=== PATIENT | female | born 1950 | race Caucasian/White ===

== ENCOUNTER 2016-08-24 09:13 | Observation (INO) | payer OTHER, BC ==
[2016-08-24] MEDS ORDERED: IBUPROFEN 400 MG TABLET (FP) PO ONE (09:30)
[2016-08-24] MEDS ORDERED: diazePAM 5 MG TABLET PO ONE (09:30)
[2016-08-24 09:31] VITALS: BMI 23.3
--- NOTE | 2016-08-24 09:34 | PDOC ---
History of Present Illness - General Chief Complaint: Injury Stated Complaint: FALL Time Seen by Provider: 08/24/16 09:26 History Source: Patient - History of Present Illness Occurred: reports: this morning Pain Location: reports: back Method of Injury: Yes: fall Past History - Past Medical History Allergies/Adverse Reactions: Allergies Allergy/AdvReac Type Severity Reaction Status Date / Time ANTI-SPASMODICS Allergy Unknown Uncoded 08/24/16 09:20 Home Medications: Ambulatory Orders Levothyroxine [Synthroid -] 125 mcg PO DAILY 08/24/16 Thyroid Disease: Yes (HYPO.) - Psycho/Social/Smoking Cessation Hx Anxiety: No Suicidal Ideation: No Smoking History: Never smoked Hx Alcohol Use: No Drug/Substance Use Hx: No Substance Use Type: None Review of Systems - Review of Systems Musculoskeletal: Yes: Back Pain. No: Neck Pain Neurological: No: Headache, Numbness, Tingling, Weakness, Dizziness *Physical Exam - Vital Signs Last Vital Signs Temp Pulse Resp BP Pulse Ox 97.1 F L 51 L 18 113/89 100 08/24/16 09:17 08/24/16 09:17 08/24/16 09:17 08/24/16 09:17 08/24/16 09:17 - Physical Exam General Appearance: Yes: Appropriately Dressed, Mild Distress HEENT: positive: Normal Voice Neck: positive: Supple. negative: Tender, Decreased range of motion Respiratory/Chest: negative: Respiratory Distress Gastrointestinal/Abdominal: positive: Soft. negative: Tender Musculoskeletal: negative: CVA Tenderness, Vertebral Tenderness Extremity: positive: Normal Inspection Integumentary: positive: Dry, Warm Neurologic: positive: Fully Oriented, Alert, Normal Mood/Affect ED Treatment Course - RADIOLOGY Radiology Studies Ordered: Category Date Time Status SPINE-LUMBAR SACRAL [RAD] Stat Radiology 08/24/16 09:30 Ordered Medical Decision Making - Medical Decision Making 08/24/16 09:31 66-year-old female history of [place]'s thyroiditis, here with lower back pain status post fall. 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 Unable to describe pain but states it is severe. Does not radiate and no lower extremity weakness, saddle anesthesia or bowel or bladder incontinence. Has not tried to take anything for pain. Has been able to stand since fall, but has not attempted to walk. No history of chronic back pain. See exam Lower back pain s/p mec fall M/l sprain R/o fx -pain control in ED 08/24/16 09:33 08/24/16 10:08 Acute osteoporotic compression fx of L2 w/ disruption of anterior cortex on XR as per radiology. Pain meds in progress 08/24/16 10:22 08/24/16 13:01 Despite multipel attempts of pain control, pt unable to ambulate in ED 2/2 pain. No LE weakness, b/b incontinence or saddle anesthesia. Will c/w pt's orthopedic Dr Steve and PMD to admit for pain control 08/24/16 13:15 Case d/w Dr Kuhn, covering MD for Dr Peters, agrees w/ admission to OBs for pain control. Pending ortho c/s for recs 08/24/16 13:23 Case discussed with MILE Khan of orthopedics, states Dr Steve does not specialize in ortho spine but that Dr Hunter does and will inform MD. Consult also placed 08/24/16 13:25 *DC/Admit/Observation/Transfer Diagnosis at time of Disposition: Compression fracture of lumbar vertebra Qualifiers: Encounter type: initial encounter Fracture type: closed Qualified Code(s): S32.000A - Wedge compression fracture of unspecified lumbar vertebra, initial encounter for closed fracture - Discharge Dispostion Condition at time of disposition: Fair Admit: Yes
[2016-08-24] MEDS ORDERED: traMADol HCL 50 MG TABLET PO ONE (10:14)
[2016-08-24] MEDS ORDERED: ONDANSETRON 4 MG TABLET PO ONE (10:16)
[2016-08-24] MEDS ORDERED: ONDANSETRON *ODT* 4 MG TABLET ONE (10:17)
[2016-08-24] MEDS ORDERED: HYDROmorphone HCL CARPU-JECT 2 MG/1 ML DISP.SYRIN IVPB ONE ×2 (11:09)
[2016-08-24] MEDS ORDERED: morphine CARPU-JECT 4 MG/1 ML DISP.SYRIN IM ONE (11:51)
[2016-08-24] MEDS ORDERED: morphine CARPU-JECT 2 MG/1 ML DISP.SYRIN ONE (11:56)
[2016-08-24 14:01] LABS: BASOPHIL 0.3 % (0-2.0); EOSINOPHIL 0.2 % (0-4.5); MCH 29.5 pg (25.7-33.7); MCHC 33.6 g/dl (32.0-36.0); MEAN CELL VOLUME 87.9 fl (80-96); MEAN PLT VOLUME 8.6 fl (7.5-11.1); NEUTROPHILS 89.3 % (42.8-82.8); PLATELET COUNT 262 K/MM3 (134-434); RDW 12.4 % (11.6-15.6); WHITE BLOOD COUNT 13.1 K/mm3 (4.0-10.0)
[2016-08-24 14:27] LABS: ALBUMIN 3.4 g/dl (3.4-5.0); ANION GAP 6 (8-16); BILIRUBIN,TOTAL 0.2 mg/dL (0.2-1.0); CALCIUM 8.9 mg/dL (8.5-10.1); CO2 27 mmol/L (21-32); CREATININE 0.6 mg/dL (0.55-1.02); GLUCOSE,RANDOM 104 mg/dL (74-106); SGPT/ALT 19 U/L (12-78); TOT PROT 6.9 g/dl (6.4-8.2)
[2016-08-24 14:28] LABS: ALK PHOS 77 U/L (45-117)
[2016-08-24 14:41] LABS: SGOT/AST 22 U/L (15-37)
[2016-08-24] MEDS ORDERED: morphine CARPU-JECT 2 MG/1 ML DISP.SYRIN IVPUSH PRN ×2 (16:49→17:11)
--- NOTE | 2016-08-24 17:12 | HP ---
Admitting History and Physical - Primary Care Physician PCP: Kit Peters - Admission Chief Complaint: back pain History of Present Illness: 66-year-old female history of [place]'s thyroiditis, here with lower back pain status post fall. 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 Unable to describe pain but states it is severe. Does not radiate and no lower extremity weakness, saddle anesthesia or bowel or bladder incontinence. Has not tried to take anything for pain. Has been able to stand since fall, but has not attempted to walk. No history of chronic back pain. x ray done in er showed acute compression fracture pt unable to walk due to pain - despite pain meds pt admitted for obs- ortho consult requested. History Source: Patient Limitations to Obtaining History: No Limitations - Past Medical History ...: No Endocrine: Yes: Hypothyroidism - Smoking History Smoking history: Never smoked Have you smoked in the past 12 months: No - Alcohol/Substance Use Hx Alcohol Use: No Home Medications - Allergies Allergies/Adverse Reactions: Allergies Allergy/AdvReac Type Severity Reaction Status Date / Time No Known Drug Allergies Allergy Verified 08/24/16 16:40 ANTI-SPASMODICS Allergy Unknown Uncoded 08/24/16 09:20 - Home Medications Home Medications: Ambulatory Orders Levothyroxine [Synthroid -] 125 mcg PO DAILY 08/24/16 Family Disease History - Family Disease History Family History: Unremarkable Review of Systems - Review of Systems Constitutional: reports: No Symptoms Eyes: reports: No Symptoms HENT: reports: No Symptoms Neck: reports: No Symptoms Cardiovascular: reports: No Symptoms Respiratory: reports: No Symptoms Gastrointestinal: reports: No Symptoms Genitourinary: reports: No Symptoms Musculoskeletal: reports: Back Pain Neurological: reports: No Symptoms Physical Examination Vital Signs: Vital Signs Temperature 97.6 F 08/24/16 15:58 Pulse Rate 54 L 08/24/16 15:58 Respiratory Rate 18 08/24/16 15:58 Blood Pressure 108/56 08/24/16 15:58 O2 Sat by Pulse Oximetry (%) 99 08/24/16 14:32 Constitutional: Yes: No Distress, Calm Eyes: Yes: Conjunctiva Clear HENT: Yes: WNL Neck: Yes: Supple Cardiovascular: Yes: Regular Rate and Rhythm Respiratory: Yes: CTA Bilaterally Gastrointestinal: Yes: Normal Bowel Sounds, Soft Musculoskeletal: Yes: Other (tenderness + lower back) Edema: No Neurological: Yes: Alert Labs: CBC, BMP 08/24/16 13:45 08/24/16 13:45 Imaging - Results X-ray: Report Reviewed Problem List - Problems (1) Compression fracture of lumbar vertebra Code(s): S32.000A - WEDGE COMPRESSION FRACTURE OF UNSP LUMBAR VERTEBRA, INIT Qualifiers: Encounter type: initial encounter Fracture type: closed Qualified Code(s): S32.000A - Wedge compression fracture of unspecified lumbar vertebra, initial encounter for closed fracture Assessment/Plan Pain control physical therapy ortho consult pending discussed with pt / daughter will follow
[2016-08-24] MEDS ORDERED: diazePAM 5 MG TABLET PO PRN (17:30)
[2016-08-24] MEDS ORDERED: ONDANSETRON 4 MG/2 ML VIAL IVPB PRN (17:32)
[2016-08-24] MEDS: ENOXAPARIN NA (PORCINE) 40 MG/0.4 ML DISP.SYRIN SQ SCH (18:35)
[2016-08-24] MEDS: traMADol HCL 50 MG TABLET PO PRN (22:56)
[2016-08-25] MEDS: LEVOTHYROXINE NA 125 MCG TABLET (FP) PO SCH (06:38)
--- NOTE | 2016-08-25 09:29 | CONSULT ---
Consult - History of Present Illness Chief Complaint: Back pain x1 day History of Present Illness: 66y/o female c/o low back pain x1 day after she fell onto her back. She immediately had pain and was transported to the ER and found to have a compression fracture of the spine. She denies any numbness or tingling in her extremities. She denies any loss of bowel or bladder function. She has no other complaints. The pain is worse with standing and better with rest. No other associated, aggravating or relieving factors. - History Source History Provided By: Patient, Medical Record Limitations to Obtaining History: No Limitations - Past Medical History ...: No Endocrine: Yes: Hypothyroidism - Alcohol/Substance Use Hx Alcohol Use: No - Smoking History Smoking history: Never smoked Have you smoked in the past 12 months: No Home Medications - Allergies Allergies/Adverse Reactions: Allergies Allergy/AdvReac Type Severity Reaction Status Date / Time No Known Drug Allergies Allergy Verified 08/24/16 16:40 ANTI-SPASMODICS Allergy Unknown Uncoded 08/24/16 09:20 - Home Medications Home Medications: Ambulatory Orders Levothyroxine [Synthroid -] 125 mcg PO DAILY 08/24/16 Review of Systems - Review of Systems Constitutional: reports: No Symptoms Eyes: reports: No Symptoms HENT: reports: No Symptoms Neck: reports: No Symptoms Cardiovascular: reports: No Symptoms Respiratory: reports: No Symptoms Gastrointestinal: reports: No Symptoms Genitourinary: reports: No Symptoms Breasts: reports: No Symptoms Reported Musculoskeletal: reports: No Symptoms Integumentary: reports: No Symptoms Neurological: reports: No Symptoms Endocrine: reports: No Symptoms Hematology/Lymphatic: reports: No Symptoms Psychiatric: reports: No Symptoms Physical Exam Vital Signs: Vital Signs Temperature 98.6 F 08/25/16 07:06 Pulse Rate 79 08/25/16 07:06 Respiratory Rate 16 08/25/16 07:06 Blood Pressure 100/57 08/25/16 07:06 O2 Sat by Pulse Oximetry (%) 100 08/25/16 01:10 Constitutional: Yes: Well Nourished, No Distress HENT: Yes: Atraumatic, Normocephalic Extremities: Yes: Other (Back: No open wounds. No erythema, edema or echymosis. Mild diffuse TTP in L2 region. BLE: No weakness, no numbness, No tenderness, Smooth ROM of hips, knees, ankles, feet. NVID.) Labs: CBC, BMP 08/24/16 13:45 08/24/16 13:45 Imaging - Results X-ray: Report Reviewed, Image Reviewed (L2 compression fracture) Assessment/Plan #1 L2 compression fracture s/p fall -LSO brace ordered -PT OOB with LSO brace -Heat PRN -Pain control -f/u with Dr. Hunter in office in 1-2 weeks. -D/C when pain is well controlled
[2016-08-25] MEDS: diazePAM 5 MG TABLET PO PRN ×2 (10:14→21:50)
[2016-08-25] MEDS: traMADol HCL 50 MG TABLET PO PRN ×2 (10:14→21:49)
[2016-08-25] MEDS: ENOXAPARIN NA (PORCINE) 40 MG/0.4 ML DISP.SYRIN SQ SCH ×2 (10:15→10:21)
--- NOTE | 2016-08-25 10:42 | PN ---
Progress Note, Physician Chief Complaint: has back pain when moved - Current Medication List Current Medications: Active Medications Diazepam (Valium -) 5 mg PO BID PRN Last Admin: 08/25/16 10:14 Dose: 5 mg Enoxaparin Sodium (Lovenox -) 40 mg SQ DAILY [facility] Last Admin: 08/25/16 10:21 Dose: Not Given Levothyroxine Sodium (Synthroid -) 125 mcg PO DAILY@0700 [facility] Last Admin: 08/25/16 06:38 Dose: 125 mcg Morphine Sulfate (Morphine Injection -) 1 mg IVPUSH Q4H PRN PRN Reason: PAIN Ondansetron HCl (Zofran Injection) 4 mg IVPB Q8H PRN PRN Reason: NAUSEA Tramadol HCl (Ultram -) 50 mg PO Q6H PRN PRN Reason: PAIN Last Admin: 08/25/16 10:14 Dose: 50 mg - Objective Vital Signs: Vital Signs Temperature 98.6 F 08/25/16 07:06 Pulse Rate 79 08/25/16 07:06 Respiratory Rate 16 08/25/16 07:06 Blood Pressure 100/57 08/25/16 07:06 O2 Sat by Pulse Oximetry (%) 100 08/25/16 01:10 Constitutional: Yes: No Distress Cardiovascular: Yes: Regular Rate and Rhythm Respiratory: Yes: CTA Bilaterally Gastrointestinal: Yes: Normal Bowel Sounds, Soft. No: Distention, Tenderness Edema: No Labs: CBC, BMP 08/24/16 13:45 08/24/16 13:45 Problem List - Problems (1) Compression fracture of lumbar vertebra Code(s): S32.000A - WEDGE COMPRESSION FRACTURE OF UNSP LUMBAR VERTEBRA, INIT Qualifiers: Encounter type: initial encounter Fracture type: closed Qualified Code(s): S32.000A - Wedge compression fracture of unspecified lumbar vertebra, initial encounter for closed fracture (2) Hypothyroidism Code(s): E03.9 - HYPOTHYROIDISM, UNSPECIFIED Assessment/Plan PLAN -- pain control --incentive spirometer -- DVT prophylaxis -- PT eval -- Ortho eval noted -- needs Lumbar brace
[2016-08-26] MEDS: LEVOTHYROXINE NA 125 MCG TABLET (FP) PO SCH (06:27)
[2016-08-26] MEDS: ACETAMINOPHEN 325 MG TABLET (FP) PO PRN (06:54)
[2016-08-26] MEDS: diazePAM 5 MG TABLET PO PRN ×2 (09:32→17:42)
[2016-08-26] MEDS: traMADol HCL 50 MG TABLET PO PRN ×2 (09:32→17:41)
[2016-08-26] MEDS: ENOXAPARIN NA (PORCINE) 40 MG/0.4 ML DISP.SYRIN SQ SCH (09:33)
--- NOTE | 2016-08-26 11:05 | PN ---
Progress Note, Physician Chief Complaint: has back pain no bm so far - Current Medication List Current Medications: Active Medications Acetaminophen (Tylenol -) 650 mg PO Q4H PRN PRN Reason: FEVER OR PAIN Last Admin: 08/26/16 06:54 Dose: 650 mg Diazepam (Valium -) 5 mg PO BID PRN Last Admin: 08/26/16 09:32 Dose: 5 mg Enoxaparin Sodium (Lovenox -) 40 mg SQ DAILY [facility] Last Admin: 08/26/16 09:33 Dose: Not Given Levothyroxine Sodium (Synthroid -) 125 mcg PO DAILY@0700 [facility] Last Admin: 08/26/16 06:27 Dose: 125 mcg Morphine Sulfate (Morphine Injection -) 1 mg IVPUSH Q4H PRN PRN Reason: PAIN Ondansetron HCl (Zofran Injection) 4 mg IVPB Q8H PRN PRN Reason: NAUSEA Tramadol HCl (Ultram -) 50 mg PO Q6H PRN PRN Reason: PAIN Last Admin: 08/26/16 09:32 Dose: 50 mg - Objective Vital Signs: Vital Signs Temperature 98.3 F 08/25/16 22:00 Pulse Rate 82 08/25/16 22:00 Respiratory Rate 18 08/26/16 00:21 Blood Pressure 105/61 08/25/16 22:00 O2 Sat by Pulse Oximetry (%) 99 08/26/16 00:21 Constitutional: Yes: No Distress Cardiovascular: Yes: Regular Rate and Rhythm Respiratory: Yes: CTA Bilaterally Gastrointestinal: Yes: Normal Bowel Sounds, Soft. No: Distention, Tenderness Edema: No Labs: CBC, BMP 08/24/16 13:45 08/24/16 13:45 Problem List - Problems (1) Compression fracture of lumbar vertebra Code(s): S32.000A - WEDGE COMPRESSION FRACTURE OF UNSP LUMBAR VERTEBRA, INIT Qualifiers: Encounter type: initial encounter Fracture type: closed Qualified Code(s): S32.000A - Wedge compression fracture of unspecified lumbar vertebra, initial encounter for closed fracture (2) Hypothyroidism Code(s): E03.9 - HYPOTHYROIDISM, UNSPECIFIED Assessment/Plan PLAN -- pain control --incentive spirometer -- DVT prophylaxis -- PT eval -- needs Lumbar brace -- will need VNS on discharge
[2016-08-26] MEDS: POLYETHYLENE GLYCOL 3350 119 GM BTL PO SCH (17:42)
[2016-08-27] MEDS: diazePAM 5 MG TABLET PO PRN (00:45)
[2016-08-27] MEDS: traMADol HCL 50 MG TABLET PO PRN ×2 (00:45→22:21)
[2016-08-27] MEDS: LEVOTHYROXINE NA 125 MCG TABLET (FP) PO SCH (06:15)
[2016-08-27] MEDS: ENOXAPARIN NA (PORCINE) 40 MG/0.4 ML DISP.SYRIN SQ SCH (10:29)
[2016-08-27] MEDS: POLYETHYLENE GLYCOL 3350 119 GM BTL PO SCH (10:42)
--- NOTE | 2016-08-27 12:28 | PN ---
Progress Note (short form) - Note Progress Note: pt seen/ examined/ chart reviewed. pt still complains of back pain difficulty walking passing urine ok pt says she cant go home as she still has lot of pain and says she lives alone and has 15 steps to home she would like to go for str daughter at bedside Vital Signs Temp 98.3 F 08/27/16 10:00 Pulse 73 08/27/16 10:00 Resp 20 08/27/16 10:00 BP 102/62 08/27/16 10:00 Pulse Ox 99 08/27/16 01:00 Intake & Output 08/26/16 08/27/16 08/27/16 23:59 11:59 23:59 Intake Total 890 Balance 890 Intake: Oral 890 Other: Voiding Method Toilet Toilet # Unmeasured Voids Void 1 2 Bowel Movement No No # Bowel Movements 0 Active Medications Acetaminophen (Tylenol -) 650 mg PO Q4H PRN PRN Reason: FEVER OR PAIN Last Admin: 08/26/16 06:54 Dose: 650 mg Diazepam (Valium -) 5 mg PO BID PRN Last Admin: 08/27/16 00:45 Dose: 5 mg Enoxaparin Sodium (Lovenox -) 40 mg SQ DAILY [facility] Last Admin: 08/27/16 10:29 Dose: Not Given Levothyroxine Sodium (Synthroid -) 125 mcg PO DAILY@0700 [facility] Last Admin: 08/27/16 06:15 Dose: 125 mcg Morphine Sulfate (Morphine Injection -) 1 mg IVPUSH Q4H PRN PRN Reason: PAIN Ondansetron HCl (Zofran Injection) 4 mg IVPB Q8H PRN PRN Reason: NAUSEA Polyethylene Glycol (Miralax (For Daily Use) -) 17 gm PO DAILY [facility] Last Admin: 08/27/16 10:42 Dose: 17 gm Tramadol HCl (Ultram -) 50 mg PO Q6H PRN PRN Reason: PAIN Last Admin: 08/27/16 00:45 Dose: 50 mg - Objective Constitutional: Yes: No Distress Cardiovascular: Yes: Regular Rate and Rhythm Respiratory: Yes: CTA Bilaterally Gastrointestinal: Yes: Normal Bowel Sounds, Soft. No: Distention, Tenderness Edema: No back-- rom limited Problem List - Problems (1) Compression fracture of lumbar vertebra Code(s): S32.000A - WEDGE COMPRESSION FRACTURE OF UNSP LUMBAR VERTEBRA, INIT Qualifiers: Encounter type: initial encounter Fracture type: closed Qualified Code(s): S32.000A - Wedge compression fracture of unspecified lumbar vertebra, initial encounter for closed fracture (2) Hypothyroidism Code(s): E03.9 - HYPOTHYROIDISM, UNSPECIFIED Assessment/Plan -- pain control -- physical therapy --incentive spirometer -- DVT prophylaxis -- -got Lumbar brace -- discussed with case sealer about pts request for str - will follow Problem List - Problems (1) Compression fracture of lumbar vertebra Code(s): S32.000A - WEDGE COMPRESSION FRACTURE OF UNSP LUMBAR VERTEBRA, INIT Qualifiers: Encounter type: initial encounter Fracture type: closed Qualified Code(s): S32.000A - Wedge compression fracture of unspecified lumbar vertebra, initial encounter for closed fracture
[2016-08-27] MEDS: CYCLOBENZAPRINE HCL 10 MG TABLET (FP) PO SCH ×2 (14:58→22:17)
[2016-08-27] MEDS: ACETAMINOPHEN 325 MG TABLET (FP) PO PRN (20:09)
[2016-08-28] MEDS: LEVOTHYROXINE NA 125 MCG TABLET (FP) PO SCH (06:04)
[2016-08-28] MEDS: traMADol HCL 50 MG TABLET PO PRN ×2 (06:09→17:04)
[2016-08-28 09:17] VITALS: BP 101/83; PULSE 83; TEMP 97.8
[2016-08-28] MEDS ORDERED: PT OWN MED DRAWER 7, Y5N ONE (10:56)
[2016-08-28] MEDS: CYCLOBENZAPRINE HCL 10 MG TABLET (FP) PO SCH (10:57)
[2016-08-28] MEDS: POLYETHYLENE GLYCOL 3350 119 GM BTL PO SCH (10:58)
[2016-08-28] MEDS: ENOXAPARIN NA (PORCINE) 40 MG/0.4 ML DISP.SYRIN SQ SCH (10:58)
--- NOTE | 2016-08-28 11:44 | DS ---
[id number] Rate 20 08/28/16 09:16 Blood Pressure 101/83 08/28/16 09:16 O2 Sat by Pulse Oximetry (%) 99 08/28/16 01:00 Constitutional: Yes: No Distress, Calm Cardiovascular: Yes: Regular Rate and Rhythm Respiratory: Yes: CTA Bilaterally Gastrointestinal: Yes: Normal Bowel Sounds, Soft. No: Distention, Tenderness Edema: No Labs: CBC, BMP 08/24/16 13:45 08/24/16 13:45 Discharge Summary Reason For Visit: COMPRESSION FX OF LUMBAR VERT Current Active Problems Compression fracture of lumbar vertebra (Acute) Hypothyroidism (Acute) Hospital Course: this is a 66-year-old woman who fell at work, was found to have acute compression fracture of the lumbar spine. She was seen by orthopedic surgeon and advised to have lumbar brace and physical therapy. patient received lumbar brace her insurance denied coverage for rehabilitation placement Patient will be discharged home with visiting nurse services and home physical therapy She is advised to follow with orthopedic surgeon She is also advised not to return to work until she is seen by her primary doctor as well as orthopedic surgeon who will give her clearance to return to work Condition: Fair - Instructions Diet, Activity, Other Instructions: patient will require VNS and physical therapy Referrals: Kit Peters MD [Primary Care Provider] - Disposition: HOME - Home Medications Comprehensive Discharge Medication List: Ambulatory Orders Levothyroxine [Synthroid -] 125 mcg PO DAILY 08/24/16
== END 2016-08-28 17:17 | disposition home or self-care (01) ==
LOC: JER 09:13 → JERBED 13:14 → UNDOADMOB 13:18 → J8W 15:05
PROVIDERS: ADMIT Internal Medicine; ATTEND Internal Medicine
DX: S32.020A Wedge compression fracture of second lumbar vertebra, initial encounter for closed fracture (principal); W01.0XXA Fall on same level from slipping, tripping and stumbling without subsequent striking against object, initial encounter; Y93.89 Activity, other specified; Y92.89 Other specified places as the place of occurrence of the external cause; M81.8 Other osteoporosis without current pathological fracture; E06.3 Autoimmune thyroiditis
CPT/HCPCS: 36415; 72100-TC; 80053; 85025; 94010; 97116-GP; 97161-GP; 99283-25; G0378